=== PATIENT | male | born 1980 | race African-American/Black ===

== ENCOUNTER 2020-05-04 12:06 | Emergency (ER) | payer SELFPAY ==
[~2020-05-04] VITALS: Ht 182.9 cm; Wt 79.0 kg
[2020-05-04 14:00] VITALS: BP 134/74
== END 2020-05-04 14:15 | disposition home or self-care (01) ==
LOC: ER 12:06
DX: S62.301A Unspecified fracture of second metacarpal bone, left hand, initial encounter for closed fracture (principal); S62.308A Unspecified fracture of other metacarpal bone, initial encounter for closed fracture; X58.XXXA Exposure to other specified factors, initial encounter; Y93.89 Activity, other specified; Y92.89 Other specified places as the place of occurrence of the external cause; Y99.8 Other external cause status
CPT/HCPCS: 73130; 99283; A4315

== ENCOUNTER 2020-05-09 21:39 | Emergency (ER) | payer SELFPAY ==
[~2020-05-09] VITALS: Ht 182.9 cm; Wt 80.0 kg
[2020-05-09 22:22] VITALS: BP 138/68
== END 2020-05-09 22:33 | disposition home or self-care (01) ==
LOC: ER 21:39
DX: M79.642 Pain in left hand (principal); Z59.0 Homelessness
CPT/HCPCS: 99282

== ENCOUNTER 2020-05-31 13:38 | Emergency (ER) | payer MEDICAID ==
[~2020-05-31] VITALS: Ht 188 cm; Wt 80.0 kg
[2020-05-31 15:41] LABS: BASOPHILS % 0.7 % (0.0-2.0); EOSINOPHILS % 3.4 % (0.0-5.0); HEMATOCRIT. 43.3 % (42.0-52.0); HEMOGLOBIN. 14.1 g/dL (14.0-18.0); LYMPHOCYTES % 34.3 % (20.0-50.0); MEAN CORPUSCULAR VOLUME 76.9 fL (80.0-94.0); MEAN PLATELET VOLUME 8.5 fl (7.4-10.4); MONOCYTES % 11.1 % (2.0-8.0); NEUTROPHILS % 50.5 % (40.0-76.0); PLATELET 213 x1000/uL (130-400); RED BLOOD CELL COUNT 5.63 mill/uL (4.7-6.1); RED CELL DISTRIBUTION WIDTH 14.7 % (11.6-14.6)
[2020-05-31 15:46] LABS: CHLORIDE 107 mEq/L (98-107)
[2020-05-31 15:50] LABS: ETHANOL BLOOD < 10 mg/dL
[2020-05-31 16:27] LABS: *AMPHETAMINES SCREEN URINE NEGATIVE (NEGATIVE); *BARBITURATES SCREEN URINE NEGATIVE (NEGATIVE); *BENZODIAZEPINES SCREEN URINE NEGATIVE (NEGATIVE); *COCAINE SCREEN URINE NEGATIVE (NEGATIVE)
[2020-05-31 16:28] LABS: CANNABINOID URINE SCREEN NEGATIVE (NEGATIVE); METHADONE URINE SCREEN NEGATIVE (NEGATIVE); OPIATES URINE SCREEN NEGATIVE (NEGATIVE); PHENCYCLIDINE URINE SCREEN NEGATIVE (NEGATIVE)
[2020-05-31 17:42] VITALS: BP 139/73
== END 2020-05-31 18:38 | disposition home or self-care (01) ==
LOC: ER 13:38
DX: R45.851 Suicidal ideations (principal); F41.9 Anxiety disorder, unspecified; F32.9 Major depressive disorder, single episode, unspecified; I10 Essential (primary) hypertension; F20.9 Schizophrenia, unspecified; Z59.0 Homelessness
CPT/HCPCS: 36415; 80053; 80305; 80320; 85025; 93005; 99284; Z7610; G0480

== ENCOUNTER 2024-02-06 14:23 | Emergency (ER) | payer MEDICAID ==
[~2024-02-06] VITALS: Ht 177.8 cm; Wt 78.0 kg
[~2024-02-06 14:23] MED LIST: ACET-2708 MT
[2024-02-06 14:30] VITALS: O2SAT 97
[2024-02-06] MEDS ORDERED: ACET-2708 MT (15:16)
[2024-02-06] MEDS: HYDROCODONE/ACETAMINOPHEN 5/325MG TABLET PO ONE (15:51)
[2024-02-06 16:00] VITALS: BP 144/68; PULSE 75; RESP 16; TEMP 36.66960; O2SAT 100
== END 2024-02-06 16:24 | disposition home or self-care (01) ==
LOC: ER 14:23
DX: M54.50 Low back pain, unspecified (principal); I10 Essential (primary) hypertension; F20.9 Schizophrenia, unspecified; K74.60 Unspecified cirrhosis of liver; F41.9 Anxiety disorder, unspecified; F32.9 Major depressive disorder, single episode, unspecified
CPT/HCPCS: 72100; 99283; Z7610 ×2

== ENCOUNTER 2024-03-07 15:01 | Emergency (ER) | payer MEDICAID, OTHER ==
[~2024-03-07] VITALS: Ht 185.4 cm; Wt 80.0 kg
[2024-03-07 15:03] VITALS: O2SAT 98
[2024-03-07 15:10] VITALS: BP 170/108; PULSE 109; RESP 15; TEMP 98.2; O2SAT 99
== END 2024-03-07 16:36 | disposition left against medical advice (07) ==
LOC: ER 15:01
DX: M54.50 Low back pain, unspecified (principal); F20.9 Schizophrenia, unspecified; I10 Essential (primary) hypertension; F41.9 Anxiety disorder, unspecified; F32.A Depression, unspecified; Z53.21 Procedure and treatment not carried out due to patient leaving prior to being seen by health care provider

== ENCOUNTER 2024-03-15 11:30 | Emergency (ER) | payer OTHER ==
[~2024-03-15] VITALS: Ht 185.4 cm; Wt 79.0 kg
[2024-03-15 11:33] VITALS: BP 147/88; PULSE 106; RESP 15; TEMP 98.1; O2SAT 99
[2024-03-15] MEDS ORDERED: NAPR-1176 MT (13:37)
[2024-03-15] MEDS ORDERED: LIDO700A15 TP (13:37)
[2024-03-15] MEDS: LIDOCAINE 5% PATCH TOP SCH (13:38)
[2024-03-15] MEDS: KETOROLAC 15MG/ML VIAL IM ONE (13:38)
== END 2024-03-15 14:33 | disposition home or self-care (01) ==
LOC: ER 11:30
DX: M54.50 Low back pain, unspecified (principal); M41.9 Scoliosis, unspecified; F20.9 Schizophrenia, unspecified; I10 Essential (primary) hypertension; F41.9 Anxiety disorder, unspecified; F32.A Depression, unspecified; Z98.890 Other specified postprocedural states; Z79.899 Other long term (current) drug therapy
CPT/HCPCS: 99283; 96372; J1885

== ENCOUNTER 2024-04-07 09:12 | Emergency (ER) | payer MEDICAID, OTHER ==
[~2024-04-07] VITALS: Ht 177.8 cm; Wt 95.0 kg
[~2024-04-07 09:12] MED LIST changes: +LIDO700A15 TP; +NAPR-1176 MT
[2024-04-07 09:25] VITALS: O2SAT 97
[2024-04-07] MEDS ORDERED: LIDO700A15 TP (11:15)
[2024-04-07 11:19] VITALS: BP 148/85; PULSE 98; RESP 18; TEMP 36.72516; O2SAT 97
== END 2024-04-07 11:23 | disposition home or self-care (01) ==
LOC: ER 09:12
DX: M54.50 Low back pain, unspecified (principal); I10 Essential (primary) hypertension; F41.9 Anxiety disorder, unspecified; F32.A Depression, unspecified; Z86.59 Personal history of other mental and behavioral disorders; Z98.890 Other specified postprocedural states
CPT/HCPCS: 72100; 99283

== ENCOUNTER 2024-05-30 10:29 | Emergency (ER) | payer MEDICAID, OTHER ==
[~2024-05-30] VITALS: Ht 175.3 cm; Wt 72.7 kg
[2024-05-30 10:33] VITALS: PULSE 90; O2SAT 99
[2024-05-30 10:38] VITALS: BP 131/80; RESP 18; TEMP 36.9; O2SAT 98
[2024-05-30] MEDS ORDERED: MENT4ADH6 TP (11:43)
== END 2024-05-30 12:43 | disposition home or self-care (01) ==
LOC: ER 10:42
DX: M54.89 Other dorsalgia (principal); F20.9 Schizophrenia, unspecified; M19.90 Unspecified osteoarthritis, unspecified site; F32.A Depression, unspecified; I10 Essential (primary) hypertension; Z79.1 Long term (current) use of non-steroidal anti-inflammatories (NSAID)
CPT/HCPCS: 99282

== ENCOUNTER 2024-06-20 13:15 | Emergency (ER) | payer MEDICAID, OTHER ==
[~2024-06-20] VITALS: Ht 180.3 cm; Wt 68.0 kg
[~2024-06-20 13:15] MED LIST changes: +MENT4ADH6 TP
[2024-06-20 13:52] VITALS: TEMP 37; O2SAT 96
[2024-06-20] MEDS ORDERED: METHYL SALICYLATE/MENTHOL CREAM 85GM TOP STA (14:26)
[2024-06-20] MEDS ORDERED: MENT4ADH6 TP (14:28)
[2024-06-20] MEDS: METHYL SALICYLATE/MENTHOL CREAM 85GM TOP NR (15:29)
[2024-06-20 15:31] VITALS: BP 154/75; PULSE 97; RESP 17; O2SAT 98
== END 2024-06-20 15:32 | disposition home or self-care (01) ==
LOC: ER 13:15
DX: G89.29 Other chronic pain (principal); M54.50 Low back pain, unspecified; M19.90 Unspecified osteoarthritis, unspecified site; Z79.1 Long term (current) use of non-steroidal anti-inflammatories (NSAID); Z79.899 Other long term (current) drug therapy
CPT/HCPCS: 99282; Z7610

== ENCOUNTER 2024-07-26 12:04 | Emergency (ER) | payer MEDICAID, OTHER ==
[2024-07-26 12:21] VITALS: PULSE 100; RESP 16; O2SAT 99
== END 2024-07-26 12:42 | disposition left against medical advice (07) ==
LOC: ER 12:04
DX: Z76.0 Encounter for issue of repeat prescription (principal); Z53.21 Procedure and treatment not carried out due to patient leaving prior to being seen by health care provider

== ENCOUNTER 2024-07-29 16:07 | Emergency (ER) | payer OTHER ==
[~2024-07-29] VITALS: Ht 180.3 cm; Wt 72.1 kg
[2024-07-29 16:15] VITALS: BP 134/80; TEMP 37; O2SAT 97
[2024-07-29 16:25] VITALS: PULSE 83; RESP 18; O2SAT 98
[2024-07-29] MEDS ORDERED: [UNRECOGNIZED DRUG - CODE] TOP (17:49)
== END 2024-07-29 18:10 | disposition home or self-care (01) ==
LOC: ER 16:07
DX: G89.29 Other chronic pain (principal); M54.50 Low back pain, unspecified; Z76.0 Encounter for issue of repeat prescription; Z79.899 Other long term (current) drug therapy
CPT/HCPCS: 99281

== ENCOUNTER 2024-08-05 08:51 | Emergency (ER) | payer OTHER ==
[~2024-08-05] VITALS: Ht 175.3 cm; Wt 72.1 kg
[~2024-08-05 08:51] MED LIST changes: +[UNRECOGNIZED DRUG - CODE] TOP
[2024-08-05 09:10] VITALS: O2SAT 99
[2024-08-05] MEDS ORDERED: [UNRECOGNIZED DRUG - CODE] TOP (09:45)
[2024-08-05 09:53] VITALS: BP 135/89; PULSE 88; RESP 18; TEMP 36.6; O2SAT 99
== END 2024-08-05 09:54 | disposition home or self-care (01) ==
LOC: ER 08:56
DX: G89.29 Other chronic pain (principal); M54.50 Low back pain, unspecified; Z76.0 Encounter for issue of repeat prescription; Z79.899 Other long term (current) drug therapy
CPT/HCPCS: 99281

== ENCOUNTER 2024-10-02 12:47 | Emergency (ER) | payer MEDICAID ==
[~2024-10-02] VITALS: Ht 180.3 cm; Wt 80.0 kg
[~2024-10-02 12:47] MED LIST changes: +LIDO-53 TP; -LIDO700A15 TP
[2024-10-02 12:55] VITALS: TEMP 37.2; O2SAT 100
[2024-10-02] MEDS ORDERED: MENT4ADH6 TP (14:40)
[2024-10-02] MEDS ORDERED: LIDO-53 TP (14:40)
[2024-10-02] MEDS ORDERED: [UNRECOGNIZED DRUG - CODE] TOP (14:40)
[2024-10-02 15:08] VITALS: BP 144/88; PULSE 98; RESP 18; O2SAT 100
[2024-10-02] MEDS: LIDOCAINE 5% PATCH TOP SCH (15:08)
== END 2024-10-02 16:36 | disposition home or self-care (01) ==
LOC: ER 12:47
DX: M54.50 Low back pain, unspecified (principal); Z79.1 Long term (current) use of non-steroidal anti-inflammatories (NSAID)
CPT/HCPCS: 72100; 99283

== ENCOUNTER 2024-11-23 10:56 | Emergency (ER) | payer MEDICAID ==
[~2024-11-23] VITALS: Ht 182.9 cm; Wt 65.0 kg
[2024-11-23 11:03] VITALS: O2SAT 100
[2024-11-23] MEDS ORDERED: MENT120G3 TP (11:40)
[2024-11-23] MEDS ORDERED: MENT4ADH6 TP (11:40)
[2024-11-23] MEDS ORDERED: [UNRECOGNIZED DRUG - CODE] TOP (11:40)
[2024-11-23] MEDS: METHYL SALICYLATE/MENTHOL CREAM 85GM TOP ONE (12:04)
[2024-11-23 13:34] VITALS: BP 134/78; PULSE 98; RESP 20; TEMP 36.7; O2SAT 100
== END 2024-11-23 13:34 | disposition home or self-care (01) ==
LOC: ER 10:56
DX: G89.29 Other chronic pain (principal); M54.50 Low back pain, unspecified; Z59.00 Homelessness unspecified; Z79.1 Long term (current) use of non-steroidal anti-inflammatories (NSAID)
CPT/HCPCS: 99283; Z7610; 99282

== ENCOUNTER 2024-12-02 12:52 | Emergency (ER) | payer MEDICAID ==
[~2024-12-02] VITALS: Ht 185.4 cm; Wt 80.0 kg
[~2024-12-02 12:52] MED LIST changes: +MENT120G3 TP
[2024-12-02 12:55] VITALS: O2SAT 100
[2024-12-02 13:07] VITALS: BP 135/78; PULSE 81; RESP 15; TEMP 36.9; O2SAT 100
[2024-12-02] MEDS ORDERED: ACET-2708 MT (13:36)
[2024-12-02] MEDS ORDERED: LIDO-53 TP (13:36)
== END 2024-12-02 14:05 | disposition home or self-care (01) ==
LOC: ER 12:52
DX: G89.29 Other chronic pain (principal); M54.50 Low back pain, unspecified; Z59.00 Homelessness unspecified; Z79.899 Other long term (current) drug therapy
CPT/HCPCS: 99282

== ENCOUNTER 2024-12-14 22:14 | Emergency (ER) | payer MEDICAID ==
[~2024-12-14] VITALS: Ht 172.7 cm; Wt 73.0 kg
[2024-12-14 22:35] VITALS: O2SAT 99
[2024-12-14 22:52] VITALS: BP 153/93; PULSE 85; RESP 16; TEMP 36.9; O2SAT 96
[2024-12-15] MEDS ORDERED: MENT4ADH6 TP (00:20)
[2024-12-15 00:23] LABS: CLARITY URINE CLOUDY (CLEAR); COLOR URINE YELLOW (YELLOW); GLUCOSE URINE NEGATIVE (NEGATIVE); KETONES URINE NEGATIVE (NEGATIVE); LEUKOCYTE ESTERASE URINE NEGATIVE (NEGATIVE); NITRITE URINE NEGATIVE (NEGATIVE); OCCULT BLOOD URINE NEGATIVE (NEGATIVE); PH URINE 6.5 (4.5-8.0); PROTEIN URINE NEGATIVE (NEGATIVE); SPECIFIC GRAVITY URINE 1.022 (1.005-1.030); UROBILINOGEN URINE 1.0 E.U./dL (0.2-1.0)
[2024-12-15 00:47] LABS: RBC URINE NONE SEEN /hpf (0-2); SQUAMOUS EPITHELIAL CELL URINE NONE SEEN /lpf (RARE/1+); WBC URINE NONE SEEN /hpf (0-2)
[2024-12-15 00:48] LABS: AMORPHOUS SEDIMENT URINE 1+ /lpf; BACTERIA URINE 1+
== END 2024-12-15 01:10 | disposition home or self-care (01) ==
LOC: ER 22:14
DX: G89.29 Other chronic pain (principal); M54.50 Low back pain, unspecified; I10 Essential (primary) hypertension; Z79.1 Long term (current) use of non-steroidal anti-inflammatories (NSAID)
CPT/HCPCS: 81003; 99283

== ENCOUNTER 2025-01-02 12:43 | Emergency (ER) | payer MEDICAID ==
[~2025-01-02] VITALS: Ht 185.4 cm; Wt 84.0 kg
[2025-01-02 12:54] VITALS: BP 154/84; PULSE 90; RESP 18; TEMP 36.9; O2SAT 98; O2SAT 99
== END 2025-01-02 14:42 | disposition left against medical advice (07) ==
LOC: ER 12:50
DX: M54.9 Dorsalgia, unspecified (principal); Z76.0 Encounter for issue of repeat prescription; Z53.21 Procedure and treatment not carried out due to patient leaving prior to being seen by health care provider
CPT/HCPCS: 99281

== ENCOUNTER 2025-01-04 10:29 | Emergency (ER) | payer MEDICAID, OTHER ==
[~2025-01-04] VITALS: Ht 188 cm; Wt 95.0 kg
[2025-01-04 10:32] VITALS: PULSE 93; RESP 14; O2SAT 98
[2025-01-04 10:37] VITALS: BP 128/74; TEMP 36.7; O2SAT 98
[2025-01-04] MEDS ORDERED: MENT1ADH19 TP (11:43)
[2025-01-04] MEDS ORDERED: MENT56.7 TP (11:43)
[2025-01-04] MEDS: METHYL SALICYLATE/MENTHOL CREAM 85GM TOP ONE (12:32)
== END 2025-01-04 12:55 | disposition home or self-care (01) ==
LOC: ER 10:29
DX: G89.29 Other chronic pain (principal); M54.50 Low back pain, unspecified; Z79.899 Other long term (current) drug therapy
CPT/HCPCS: 99282; Z7610 ×3; A4606

== ENCOUNTER 2025-01-17 11:38 | Emergency (ER) | payer OTHER ==
[~2025-01-17] VITALS: Ht 182.9 cm; Wt 85.0 kg
[~2025-01-17 11:38] MED LIST changes: +MENT1ADH19 TP; +MENT56.7 TP
[2025-01-17 11:41] VITALS: O2SAT 99
[2025-01-17] MEDS ORDERED: MENT120G3 TP (12:12)
[2025-01-17] MEDS ORDERED: LIDO-53 TP (12:12)
[2025-01-17] MEDS ORDERED: MENT1ADH19 TP (12:12)
[2025-01-17 12:30] VITALS: BP 129/86; PULSE 87; RESP 18; TEMP 36.8; O2SAT 99
== END 2025-01-17 12:51 | disposition home or self-care (01) ==
LOC: ER 11:38
DX: G89.29 Other chronic pain (principal); M54.50 Low back pain, unspecified; Z79.1 Long term (current) use of non-steroidal anti-inflammatories (NSAID); Z76.0 Encounter for issue of repeat prescription; Z59.00 Homelessness unspecified
CPT/HCPCS: 99282; 99283